=== PATIENT | female | born 1950 | race Caucasian/White ===

== ENCOUNTER 2023-01-12 12:31 | Emergency (ER) | payer MEDICARE, SELFPAY ==
--- NOTE | ~2023-01-12 | XR_ITS ---
EXAMINATION: XR CHEST CLINICAL INFORMATION: Shortness of breath, possible pneumonia COMPARISON: CT abdomen 12/13/2012 TECHNIQUE: 2 views of the chest were obtained. FINDINGS: There is no airspace consolidation or groundglass opacity or effusion. Heart size normal. Vascularity normal. There is mild coarsening bronchiolar markings of uncertain chronicity. No bronchiectasis or hyperinflation. There is small sliding hiatal hernia, similar to CT abdomen 2012. Bony structures are unremarkable. XR/XR chest 2V IMPRESSION: 1. Mild coarsening bronchiolar markings. 2. No hyperinflation, infiltrate or effusion.
--- NOTE | 2023-01-12 12:45 | ECG_ITS ---
Test Reason : diff breathing Blood Pressure : / mmHG Vent. Rate : 090 BPM Atrial Rate : 090 BPM P-R Int : 152 ms QRS Dur : 086 ms QT Int : 344 ms P-R-T Axes : 006 000 214 degrees QTc Int : 420 ms Normal sinus rhythm Minimal voltage criteria for LVH, may be normal variant ( R in aVL ) Nonspecific ST and T wave abnormality Abnormal ECG When compared with ECG of 17-DEC-2012 15:32, Premature ventricular complexes are no longer Present Nonspecific T wave abnormality, worse in Anterolateral leads Referred By: Ester Fortune Electronically Signed By:FRANK BRADLEY
--- NOTE | 2023-01-12 13:08 | ED_ITS ---
HPI - SOB/Dyspnea General Chief Complaint: Upper Respiratory Symptoms <PARKER Stroud - Last Filed: 01/12/23 13:12> Stated Complaint: Pneumonia? Diff breathing <PARKER Stroud - Last Filed: 01/12/23 13:12> Time Seen by Provider: 01/12/23 15:34 <PARKER Stroud - Last Filed: 01/12/23 13:12> History of Present Illness HPI Narrative: Patient complains of cough, chest congestion, runny nose, body aches, she has been sick for about 5 days, she does get some shortness of breath with walking up and down the stairs and with coughing, there is no chest pain, no nausea or vomiting, no diaphoresis, no fainting no feeling faint, There is runny nose, mild sore throat, body aches some fatigue <PARKER Clarke Last Filed: 01/12/23 18:52> Related Data Home Medications: Previous Rx's Medication Instructions Recorded benzonatate 100 mg capsule 100 mg PO BID PRN cough #14 caps 01/12/23 doxycycline hyclate 100 mg capsule 100 mg PO BID 7 days #14 caps 01/12/23 <PARKER Stroud Last Filed: 01/12/23 13:12> Allergies/Adverse Reactions: Allergies Allergy/AdvReac Type Severity Reaction Status Date / Time sulfamethoxazole Allergy Unknown Verified 01/12/23 13:09 [From Bactrim] trimethoprim [From Bactrim] Allergy Unknown Verified 01/12/23 13:09 From KEFLEX Allergy Unknown ITCHY AND Uncoded 08/09/20 16:24 YEAST INF keflex Allergy Unknown itching Uncoded 12/27/12 00:00 <PARKER Stroud Last Filed: 01/12/23 13:12> [facility] Past Medical History Source: nursing notes reviewed <PARKER Clarke Last Filed: 01/12/23 18:52> Social History Social History: Social History Advance Directives: No Advance Directives Information Provided: No <PARKER Stroud Last Filed: 01/12/23 13:12> Physical Exam Vital Signs: Vital Signs: Last Vital Signs Temp 98.5 F 01/12/23 13:09 Pulse 75 01/12/23 16:15 Resp 20 01/12/23 16:15 BP 156/89 H 01/12/23 16:15 Pulse Ox 97 01/12/23 16:15 O2 Del Method 01/12/23 16:15 BMI result Body Mass Index 35.6 <PARKER Stroud - Last Filed: 01/12/23 13:12> Vital Signs: Last Vital Signs Temp 98.5 F 01/12/23 13:09 Pulse 75 01/12/23 16:15 Resp 20 01/12/23 16:15 BP 156/89 H 01/12/23 16:15 Pulse Ox 97 01/12/23 16:15 O2 Del Method 01/12/23 16:15 BMI result Body Mass Index 35.6 <PARKER Clarke - Last Filed: 01/12/23 18:52> General appearance no acute distress Eyes anicteric no pallor The pharynx mucous membranes are moist No redness swelling or exudate The nose there is no sinus tenderness The neck is supple Chest was clear to auscultation bilateral Heart no murmur Extremities no edema no calf tenderness or swelling Skin no rash <PARKER Clarke - Last Filed: 01/12/23 18:52> Course Course Course Narrative: RME - 72 yo female with history of depression, 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 Had cold sweats and chills this week but unknown if she had a fever. No chest pain. Vaccinated for pneumonia x2 but she is worried she may have pneumonia. Will check CXR, EKG, labs and viral swabs. 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 Had cold sweats and chills this week but unknown if she had a fever. No chest pain. Vaccinated for pneumonia x2 but she is worried she may have pneumonia. Will check CXR, EKG, labs and viral swabs. Hematology and chemistry did not reveal any acute abnormality,, chest x-ray no acute findings, serology no COVID or flu Patient is treated for possible bronchitis with doxycycline After patient was discharged at a call from the pharmacy about a possible reaction with her Coumadin which I had not realized he was taking Coumadin I did call the patient and leave a message on her machine that she needs her INR checked within 2 days and will call back to speak with her personally and confirm that she got the message <PARKER Clarke - Last Filed: 01/12/23 18:52> Medical Decision Making Lab Data Result Diagrams: 01/12/23 13:21 01/12/23 13:21 <PARKER Stroud - Last Filed: 01/12/23 13:12> Labs: Lab Results 01/12/23 01/12/23 01/12/23 Range/Units 13:21 13:21 13:21 WBC 7.3 (4.8-10.8) X10*3/uL RBC 4.20 (4.20-5.50) X10*6/uL Hgb 12.2 (12.0-16.0) g/dl Hct 39.0 (37.0-47.0) % MCV 92.9 (80.0-98.0) fL MCH 29.0 (27.0-33.0) pg MCHC 31.3 (31.0-35.0) g/dl RDW 13.1 (11.0-16.0) % Plt Count 347 (160-400) X10*3/uL MPV 9.7 (9.4-12.3) fL Immature Gran % (Auto) 0.4 (0.0-0.4) % Neut % (Auto) 55.4 (45-73) % Lymph % (Auto) 33.4 (20-40) % [place] % (Auto) 8.1 (2-11) % Eos % (Auto) 2.2 (0-4) % Baso % (Auto) 0.5 (0-2) % Lymph # (Auto) 2.4 (1.2-4.9) X10*3/uL [place] # (Auto) 0.6 (0.1-1.2) X10*3/uL Eos # (Auto) 0.2 (0.0-0.4) X10*3/uL Baso # (Auto) 0.0 (0.0-0.2) X10*3/uL Abs Immat Gran (auto) 0.03 (0.00-0.03) X10*3/uL Absolute Neuts (auto) 4.0 (2.0-8.3) x10*3/uL Absolute Nucleated RBC 0.000 (0.0-0.012) X10*3/uL Nucleated RBC % (auto) 0.0 (0.0-0.2) /100WBC Smear Tech's Comments VERIFIED Sodium 141 (135-145) mmol/L Potassium 3.8 (3.3-5.1) mmol/L Chloride 108 (96-108) mmol/L Carbon Dioxide 22 (22-29) mmol/L Anion Gap 15 (12-20) BUN 12 (9-16) mg/dL Creatinine 0.86 (0.5-1.4) mg/dL Estim Creat Clear Calc 62.0 Estimated GFR > 60 Random Glucose 116 H (60-115) mg/dL Calcium 8.5 (8.4-10.2) mg/dL Magnesium 2.0 (1.6-2.6) mg/dL Total Bilirubin 0.4 (0.0-1.0) mg/dL Direct Bilirubin < 0.2 (0.0-0.5) mg/dL AST 28 (5-31) U/L ALT 28 (0-31) U/L Alkaline Phosphatase 110 (39-117) U/L B-Natriuretic Peptide 58 (<100) pg/mL Total Protein 7.4 (6.5-8.0) g/dL Albumin 3.8 (3.5-5.0) g/dL COVID-19 (CHALINO) (Negative) COVID-19 Clin Com Influenza Type A (CHAITANYA) (Negative) Influenza Type B (CHAITANYA) (Negative) Influenza A & B Note 01/12/23 01/12/23 Range/Units 13:21 13:21 WBC (4.8-10.8) X10*3/uL RBC (4.20-5.50) X10*6/uL Hgb (12.0-16.0) g/dl Hct (37.0-47.0) % MCV (80.0-98.0) fL MCH (27.0-33.0) pg MCHC (31.0-35.0) g/dl RDW (11.0-16.0) % Plt Count (160-400) X10*3/uL MPV (9.4-12.3) fL Immature Gran % (Auto) (0.0-0.4) % Neut % (Auto) (45-73) % Lymph % (Auto) (20-40) % [place] % (Auto) (2-11) % Eos % (Auto) (0-4) % Baso % (Auto) (0-2) % Lymph # (Auto) (1.2-4.9) X10*3/uL [place] # (Auto) (0.1-1.2) X10*3/uL Eos # (Auto) (0.0-0.4) X10*3/uL Baso # (Auto) (0.0-0.2) X10*3/uL Abs Immat Gran (auto) (0.00-0.03) X10*3/uL Absolute Neuts (auto) (2.0-8.3) x10*3/uL Absolute Nucleated RBC (0.0-0.012) X10*3/uL Nucleated RBC % (auto) (0.0-0.2) /100WBC Smear Tech's Comments Sodium (135-145) mmol/L Potassium (3.3-5.1) mmol/L Chloride (96-108) mmol/L Carbon Dioxide (22-29) mmol/L Anion Gap (12-20) BUN (9-16) mg/dL Creatinine (0.5-1.4) mg/dL Estim Creat Clear Calc Estimated GFR Random Glucose (60-115) mg/dL Calcium (8.4-10.2) mg/dL Magnesium (1.6-2.6) mg/dL Total Bilirubin (0.0-1.0) mg/dL Direct Bilirubin (0.0-0.5) mg/dL AST (5-31) U/L ALT (0-31) U/L Alkaline Phosphatase (39-117) U/L B-Natriuretic Peptide (<100) pg/mL Total Protein (6.5-8.0) g/dL Albumin (3.5-5.0) g/dL COVID-19 (CHALINO) Negative (Negative) COVID-19 Clin Com See Note Influenza Type A (CHAITANYA) Negative (Negative) Influenza Type B (CHAITANYA) Negative (Negative) Influenza A & B Note See Note <PARKER Stroud - Last Filed: 01/12/23 13:12> Lab Results 01/12/23 01/12/23 01/12/23 Range/Units 13:21 13:21 13:21 WBC 7.3 (4.8-10.8) X10*3/uL RBC 4.20 (4.20-5.50) X10*6/uL Hgb 12.2 (12.0-16.0) g/dl Hct 39.0 (37.0-47.0) % MCV 92.9 (80.0-98.0) fL MCH 29.0 (27.0-33.0) pg MCHC 31.3 (31.0-35.0) g/dl RDW 13.1 (11.0-16.0) % Plt Count 347 (160-400) X10*3/uL MPV 9.7 (9.4-12.3) fL Immature Gran % (Auto) 0.4 (0.0-0.4) % Neut % (Auto) 55.4 (45-73) % Lymph % (Auto) 33.4 (20-40) % [place] % (Auto) 8.1 (2-11) % Eos % (Auto) 2.2 (0-4) % Baso % (Auto) 0.5 (0-2) % Lymph # (Auto) 2.4 (1.2-4.9) X10*3/uL [place] # (Auto) 0.6 (0.1-1.2) X10*3/uL Eos # (Auto) 0.2 (0.0-0.4) X10*3/uL Baso # (Auto) 0.0 (0.0-0.2) X10*3/uL Abs Immat Gran (auto) 0.03 (0.00-0.03) X10*3/uL Absolute Neuts (auto) 4.0 (2.0-8.3) x10*3/uL Absolute Nucleated RBC 0.000 (0.0-0.012) X10*3/uL Nucleated RBC % (auto) 0.0 (0.0-0.2) /100WBC Smear Tech's Comments VERIFIED Sodium 141 (135-145) mmol/L Potassium 3.8 (3.3-5.1) mmol/L Chloride 108 (96-108) mmol/L Carbon Dioxide 22 (22-29) mmol/L Anion Gap 15 (12-20) BUN 12 (9-16) mg/dL Creatinine 0.86 (0.5-1.4) mg/dL Estim Creat Clear Calc 62.0 Estimated GFR > 60 Random Glucose 116 H (60-115) mg/dL Calcium 8.5 (8.4-10.2) mg/dL Magnesium 2.0 (1.6-2.6) mg/dL Total Bilirubin 0.4 (0.0-1.0) mg/dL Direct Bilirubin < 0.2 (0.0-0.5) mg/dL AST 28 (5-31) U/L ALT 28 (0-31) U/L Alkaline Phosphatase 110 (39-117) U/L B-Natriuretic Peptide 58 (<100) pg/mL Total Protein 7.4 (6.5-8.0) g/dL Albumin 3.8 (3.5-5.0) g/dL COVID-19 (CHALINO) (Negative) COVID-19 Clin Com Influenza Type A (CHAITANYA) (Negative) Influenza Type B (CHAITANYA) (Negative) Influenza A & B Note 01/12/23 01/12/23 Range/Units 13:21 13:21 WBC (4.8-10.8) X10*3/uL RBC (4.20-5.50) X10*6/uL Hgb (12.0-16.0) g/dl Hct (37.0-47.0) % MCV (80.0-98.0) fL MCH (27.0-33.0) pg MCHC (31.0-35.0) g/dl RDW (11.0-16.0) % Plt Count (160-400) X10*3/uL MPV (9.4-12.3) fL Immature Gran % (Auto) (0.0-0.4) % Neut % (Auto) (45-73) % Lymph % (Auto) (20-40) % [place] % (Auto) (2-11) % Eos % (Auto) (0-4) % Baso % (Auto) (0-2) % Lymph # (Auto) (1.2-4.9) X10*3/uL [place] # (Auto) (0.1-1.2) X10*3/uL Eos # (Auto) (0.0-0.4) X10*3/uL Baso # (Auto) (0.0-0.2) X10*3/uL Abs Immat Gran (auto) (0.00-0.03) X10*3/uL Absolute Neuts (auto) (2.0-8.3) x10*3/uL Absolute Nucleated RBC (0.0-0.012) X10*3/uL Nucleated RBC % (auto) (0.0-0.2) /100WBC Smear Tech's Comments Sodium (135-145) mmol/L Potassium (3.3-5.1) mmol/L Chloride (96-108) mmol/L Carbon Dioxide (22-29) mmol/L Anion Gap (12-20) BUN (9-16) mg/dL Creatinine (0.5-1.4) mg/dL Estim Creat Clear Calc Estimated GFR Random Glucose (60-115) mg/dL Calcium (8.4-10.2) mg/dL Magnesium (1.6-2.6) mg/dL Total Bilirubin (0.0-1.0) mg/dL Direct Bilirubin (0.0-0.5) mg/dL AST (5-31) U/L ALT (0-31) U/L Alkaline Phosphatase (39-117) U/L B-Natriuretic Peptide (<100) pg/mL Total Protein (6.5-8.0) g/dL Albumin (3.5-5.0) g/dL COVID-19 (CHALINO) Negative (Negative) COVID-19 Clin Com See Note Influenza Type A (CHAITANYA) Negative (Negative) Influenza Type B (CHAITANYA) Negative (Negative) Influenza A & B Note See Note <PARKER Clarke - Last Filed: 01/12/23 18:52> Discharge Plan Discharge Clinical Impression: Bronchitis <PARKER Stroud - Last Filed: 01/12/23 13:12> Patient Disposition: Home, Self-Care <PARKER Stroud - Last Filed: 01/12/23 13:12> Additional Instructions: Chest x-ray did not show any pneumonia or significant abnormality EKG did not show any signs of heart attack COVID and flu tests were negative, blood tests did not reveal any acute a bnormality We are treating for bronchitis with antibiotic doxycycline and for cough with Tessalon Follow with her doctor if not better next week Return any time difficulty breathing chest pain any worse condition or any concerns <PARKER Strodu - Last Filed: 01/12/23 13:12> Prescriptions: New doxycycline hyclate 100 mg capsule 100 mg PO BID 7 Days Qty: 14 0RF benzonatate 100 mg capsule 100 mg PO BID PRN (Reason: cough) Qty: 14 0RF <PARKER Stroud - Last Filed: 01/12/23 13:12> Interventions: ED Discharge Assessment Last Done: 01/12/23 18:30 <PARKER Stroud - Last Filed: 01/12/23 13:12> Discharge Date/Time: 01/12/23 18:31 <PARKER Stroud - Last Filed: 01/12/23 13:12>
[2023-01-12 13:09] VITALS: BP 141/81; PULSE 88; RESP 18; TEMP 36.9; O2SAT 95; BMI 35.6
--- NOTE | 2023-01-12 13:24 | MHC.EDTECH ---
EKG completed and signed by . Labs/covid/flu collected and sent
[2023-01-12 13:28] LABS: Basophils Percent Auto 0.5 % (0-2); Eosinophils Absolute Auto 0.2 X10*3/uL (0.0-0.4); Eosinophils Percent Auto 2.2 % (0-4); Hemoglobin 12.2 g/dl (12.0-16.0); Imm Gran Abs Auto 0.03 X10*3/uL (0.00-0.03); Imm Gran Pct Auto 0.4 % (0.0-0.4); Lymphocytes Absolute Auto 2.4 X10*3/uL (1.2-4.9); Lymphocytes Percent Auto 33.4 % (20-40); MANUAL DIFF FLAG SCAN; Mean Corpuscular HGB Conc 31.3 g/dl (31.0-35.0); Mean Corpuscular Volume 92.9 fL (80.0-98.0); Mean Platelet Volume 9.7 fL (9.4-12.3); Monocytes Absolute Auto 0.6 X10*3/uL (0.1-1.2); Monocytes Percent Auto 8.1 % (2-11); Neutrophils Percent Auto 55.4 % (45-73); Platelet Count 347 X10*3/uL (160-400); Red Cell Distribution Width 13.1 % (11.0-16.0); SCAN SMEAR FLAG 1; White Blood Count 7.3 X10*3/uL (4.8-10.8)
[2023-01-12 13:47] LABS: B Type Natriuretic Peptide 58 pg/mL (<100); SLIDE REVIEW VERIFIED
[2023-01-12 13:48] LABS: Alanine Aminotransferase 28 U/L (0-31); Albumin Level 3.8 g/dL (3.5-5.0); Alkaline Phosphatase 110 U/L (39-117); Anion Gap 15 (12-20); Aspartate Amino Transferase 28 U/L (5-31); Bilirubin Direct < 0.2 mg/dL (0.0-0.5); Bilirubin Total 0.4 mg/dL (0.0-1.0); Blood Urea Nitrogen 12 mg/dL (9-16); Calcium 8.5 mg/dL (8.4-10.2); Carbon Dioxide 22 mmol/L (22-29); Chloride 108 mmol/L (96-108); Estimated Glomerular Filt Rate > 60; Glucose Random 116 mg/dL (60-115); Potassium 3.8 mmol/L (3.3-5.1); Sodium 141 mmol/L (135-145); Total Protein 7.4 g/dL (6.5-8.0)
[2023-01-12 14:00] LABS: COVID-19 Test Negative (Negative); IDNOW Serial# 16C4AD1C; IDNOW Serial# BCCEAD1C; Influenza A Negative (Negative); Influenza B2 Negative (Negative)
[2023-01-12 16:15] VITALS: BP 156/89; PULSE 75; RESP 20; O2SAT 97
--- NOTE | 2023-01-12 16:48 | ECG_ITS ---
Test Reason : REPEAT Blood Pressure : / mmHG Vent. Rate : 073 BPM Atrial Rate : 073 BPM P-R Int : 168 ms QRS Dur : 090 ms QT Int : 404 ms P-R-T Axes : 022 004 -11 degrees QTc Int : 445 ms Normal sinus rhythm Nonspecific ST and T wave abnormality Abnormal ECG When compared with ECG of 12-JAN-2023 13:15, No significant changes seen Referred By: Albino Collado Electronically Signed By:FRANK BRADLEY
== END 2023-01-12 18:31 | disposition home or self-care (01) ==
PROVIDERS: Physician Assistant; Emergency Provider Emergency Medicine; PCP Internal Medicine
DX: J40 Bronchitis, not specified as acute or chronic (principal); R06.02 Shortness of breath; M79.10 Myalgia, unspecified site; Z20.822 Contact with and (suspected) exposure to COVID-19; Z20.828 Contact with and (suspected) exposure to other viral communicable diseases; Z79.899 Other long term (current) drug therapy
CPT/HCPCS: 71046; 80048; 80076; 83735; 83880; 85025; 87502; 87635; 93005; 99283